=== PATIENT | male | born 1960 | race Caucasian/White ===

== ENCOUNTER 2023-01-02 11:30 | Emergency (ER) | payer OTHER ==
[~2023-01-02] VITALS: Ht 152.4 cm; Wt 62.0 kg
[2023-01-02 11:44] VITALS: BP 138/60; PULSE 67; RESP 16; TEMP 98.9; O2SAT 100
[2023-01-02] MEDS ORDERED: BENZ200C52 MT (12:40)
== END 2023-01-02 12:50 | disposition home or self-care (01) ==
LOC: ER 11:30
DX: R05.9 Cough, unspecified (principal); E11.9 Type 2 diabetes mellitus without complications
CPT/HCPCS: 71045; 99283